=== PATIENT | male | born 1940 | race Caucasian/White ===

== ENCOUNTER 2017-11-14 20:36 | Inpatient (IN) | payer MEDICARE, BC ==
[~2017-11-14] VITALS: Ht 177.8 cm; Wt 79.5 kg
[2017-11-14 21:31] LABS: HEMATOCRIT 37.8 % (42.0-54.0); HEMOGLOBIN 12.2 g/dL (13.5-17.5); MCH 28.5 pg (26.0-34.0); MCHC 32.3 g/dL (31.0-37.0); MCV 88.3 fL (80.0-100.0); PLATELET COUNT 121 10x3/uL (130-400); RBC 4.28 10x6/uL (4.20-6.10); WBC 2.2 10x3/uL (4.8-10.8)
[2017-11-14 21:42] LABS: APPEARANCE CLEAR (CLEAR); BILIRUBIN NEGATIVE (NEGATIVE); COLOR YELLOW (YELLOW); GLUCOSE NEGATIVE (NEGATIVE); KETONE NEGATIVE (NEGATIVE); NITRITE NEGATIVE (NEGATIVE); PROTEIN NEGATIVE (NEGATIVE); SPECIFIC GRAVITY 1.015 (1.005-1.020); UROBILINOGEN NORMAL (NORMAL)
[2017-11-14 22:01] LABS: ALBUMIN 3.3 g/dL (3.4-5.0); ALKALINE PHOSPHATASE 96 U/L (46-116); ALT (SGPT) 26 U/L (10-68); BILIRUBIN - TOTAL 0.33 mg/dL (0.2-1.3); CALC OSMOLALITY 284 mosm/kg (275-300); CALCIUM 8.2 mg/dL (8.5-10.1); CARBON DIOXIDE 27.5 mmol/L (21.0-32.0); CHLORIDE - SERUM 105 mmol/L (98-107); CREATININE - SERUM 1.3 mg/dL (0.6-1.3); GLUCOSE 112 mg/dL (74-106); POTASSIUM - SERUM 4.1 mmol/L (3.5-5.1); PROTEIN - SERUM 6.8 g/dL (6.4-8.2); SODIUM 140 mmol/L (136-145); UREA NITROGEN 26 mg/dL (7-18); eGFR NON AFRICAN AMERICAN 57 mL/min (90-120)
[2017-11-14 22:12] LABS: CHOL - HDL RATIO 3.8 ratio (2.3-4.9); CHOLESTEROL, TOTAL 148 mg/dL (0-200); CKMB 1.3 U/L (0.0-3.6); CREATINE KINASE 79 UL (21-232); HDL CHOLESTEROL 39 mg/dL (32-96); LDL CHOLESTEROL 82 mg/dL (0-100); LDL-HDL RATIO 2.1 ratio (1.5-3.5); TRIGLYCERIDE 139 mg/dL (30-200); TROPONIN-I < 0.017 ng/mL (0.000-0.060)
[2017-11-14 22:14] LABS: LYMPHOCYTES 36 % (15-50); MONOCYTES 1 % (2-11); NEUTROPHILS 63 % (40-80); PLATELET ESTIMATE NORMAL
[2017-11-15 04:47] VITALS: BP 128/62
[2017-11-15 05:40] LABS: HEMATOCRIT 37.3 % (42.0-54.0); HEMOGLOBIN 12.2 g/dL (13.5-17.5); MCH 28.8 pg (26.0-34.0); MCHC 32.7 g/dL (31.0-37.0); MCV 88.2 fL (80.0-100.0); MEAN PLATELET VOLUME 9.4 fL (7.4-10.4); PLATELET COUNT 113 10x3/uL (130-400); RBC 4.23 10x6/uL (4.20-6.10)
[2017-11-15 05:41] LABS: WBC 1.6 10x3/uL (4.8-10.8)
[2017-11-15 07:29] VITALS: BP 128/62; BMI 25.1
[2017-11-15 07:47] LABS: ANISOCYTOSIS OCC; LYMPHOCYTES 36 % (15-50); MONOCYTES 4 % (2-11); NEUTROPHILS 60 % (40-80); PLATELET ESTIMATE DECREASED
[2017-11-15 07:48] LABS: ROULEAUX OCC
[2017-11-15 08:03] VITALS: BP 159/90
[2017-11-15 11:39] VITALS: Ht 177.8 cm; Wt 79.5 kg
[2017-11-15 12:35] VITALS: BP 125/74
[2017-11-15 14:16] LABS: INR 1.03 (0.85-1.17); PROTIME 13.1 SECONDS (11.6-15.0)
[2017-11-15 15:56] VITALS: BP 121/77
[2017-11-15 21:41] VITALS: BP 161/91
[2017-11-16 02:35] VITALS: BP 138/84
[2017-11-16 06:20] VITALS: BP 100/70
[2017-11-16 09:07] VITALS: BP 134/78
[2017-11-16 13:13] VITALS: BP 124/70
[2017-11-16 16:23] VITALS: BP 117/69
[2017-11-16 22:16] VITALS: BP 132/80
[2017-11-17 05:26] VITALS: BP 139/82
[2017-11-17 05:35] LABS: BASOPHILS 0.8 % (0-2); EOSINOPHILS 0 % (0-7); HEMATOCRIT 35.3 % (42.0-54.0); HEMOGLOBIN 11.6 g/dL (13.5-17.5); LYMPHOCYTES 23.1 % (15-50); MCH 28.5 pg (26.0-34.0); MCHC 32.9 g/dL (31.0-37.0); MCV 86.7 fL (80.0-100.0); MEAN PLATELET VOLUME 9.6 fL (7.4-10.4); MONOCYTES 12.4 % (2-11); NEUTROPHILS 63.7 % (40-80); RBC 4.07 10x6/uL (4.20-6.10); RDW 13.8 % (11.5-14.5)
[2017-11-17 05:38] LABS: PLATELET COUNT 71 10x3/uL (130-400); WBC 1.2 10x3/uL (4.8-10.8)
[2017-11-17 05:54] LABS: ALBUMIN 2.8 g/dL (3.4-5.0); BILIRUBIN - TOTAL 0.3 mg/dL (0.2-1.3); CALCIUM 7.7 mg/dL (8.5-10.1); CREATININE - SERUM 1.2 mg/dL (0.6-1.3); PROTEIN - SERUM 5.9 g/dL (6.4-8.2)
[2017-11-17 08:03] VITALS: BP 138/81
[2017-11-17 12:58] VITALS: BP 142/80
[2017-11-17 14:24] LABS: MONO NEGATIVE (NEGATIVE)
[2017-11-17 16:14] LABS: EHRLICHIA CHAFF IGG Negative (Neg:<1:64); EHRLICHIA CHAFF IGM Negative (Neg:<1:20); HGE IGG TITER Negative (Neg:<1:64); HGE IGM TITER Negative (Neg:<1:20)
[2017-11-17 16:52] VITALS: BP 123/66
[2017-11-17 21:32] VITALS: BP 131/78
[2017-11-18 04:56] VITALS: BP 125/75
[2017-11-18 06:00] LABS: BASOPHILS 0.7 % (0-2); EOSINOPHILS 0.7 % (0-7); HEMATOCRIT 35.5 % (42.0-54.0); HEMOGLOBIN 11.7 g/dL (13.5-17.5); LYMPHOCYTES 29.3 % (15-50); MCH 28.4 pg (26.0-34.0); MCV 86.2 fL (80.0-100.0); MONOCYTES 17.1 % (2-11); NEUTROPHILS 52.2 % (40-80); PLATELET COUNT 73 10x3/uL (130-400); RBC 4.12 10x6/uL (4.20-6.10)
[2017-11-18 06:21] LABS: WBC 1.4 10x3/uL (4.8-10.8)
[2017-11-18 06:34] LABS: ALBUMIN 2.7 g/dL (3.4-5.0); BILIRUBIN - TOTAL 0.29 mg/dL (0.2-1.3); CALCIUM 7.9 mg/dL (8.5-10.1); CARBON DIOXIDE 26.9 mmol/L (21.0-32.0); CREATININE - SERUM 1.1 mg/dL (0.6-1.3); POTASSIUM - SERUM 3.9 mmol/L (3.5-5.1); PROTEIN - SERUM 5.5 g/dL (6.4-8.2)
[2017-11-18 08:59] VITALS: BP 135/73
[2017-11-18 10:12] LABS: EBV - EARLY ANTIGEN AB IGG 79.9 U/mL (0.0-8.9); EBV - NUCLEAR ANTIGEN AB IGG >600.0 U/mL (0.0-17.9); EBV VIRAL CAPSID AB IGG >600.0 U/mL (0.0-17.9); EBV VIRAL CAPSID AB IGM <36.0 U/mL (0.0-35.9)
[2017-11-18 13:09] VITALS: BP 136/75
[2017-11-18 16:14] VITALS: BP 141/80
[2017-11-18 22:35] VITALS: BP 153/83
[2017-11-19 06:40] LABS: BASOPHILS 0.6 % (0-2); EOSINOPHILS 2.5 % (0-7); HEMATOCRIT 35.8 % (42.0-54.0); HEMOGLOBIN 11.7 g/dL (13.5-17.5); LYMPHOCYTES 27.6 % (15-50); MCH 28.2 pg (26.0-34.0); MCHC 32.7 g/dL (31.0-37.0); MCV 86.3 fL (80.0-100.0); MEAN PLATELET VOLUME 9.5 fL (7.4-10.4); MONOCYTES 14.7 % (2-11); NEUTROPHILS 54.6 % (40-80); PLATELET COUNT 62 10x3/uL (130-400); RBC 4.15 10x6/uL (4.20-6.10); RDW 13.8 % (11.5-14.5)
[2017-11-19 06:42] LABS: WBC 1.6 10x3/uL (4.8-10.8)
[2017-11-19 07:12] LABS: ALBUMIN 2.8 g/dL (3.4-5.0); ANION GAP 12.4 mmol/L (8-16); BILIRUBIN - TOTAL 0.3 mg/dL (0.2-1.3); CALCIUM 7.8 mg/dL (8.5-10.1); CARBON DIOXIDE 26.3 mmol/L (21.0-32.0); CREATININE - SERUM 1.1 mg/dL (0.6-1.3); POTASSIUM - SERUM 3.7 mmol/L (3.5-5.1); PROTEIN - SERUM 5.4 g/dL (6.4-8.2)
[2017-11-19 08:28] VITALS: BP 135/72
[2017-11-19] MEDS ORDERED: DOXYCYCLINE HY100 M2 PO (09:26)
[2017-11-19] MEDS ORDERED: PROTONIX40 MG PO (09:26)
[2017-11-19 13:25] VITALS: BP 137/74
[2017-11-20 16:12] LABS: LYME WB - IGG P18 AB Absent (()); LYME WB - IGG P23 AB Absent (()); LYME WB - IGG P28 AB Absent (()); LYME WB - IGG P30 AB Absent (()); LYME WB - IGG P39 AB Absent (()); LYME WB - IGG P41 AB Absent (()); LYME WB - IGG P45 AB Absent (()); LYME WB - IGG P58 AB Absent (()); LYME WB - IGG P66 AB Absent (()); LYME WB - IGG P93 AB Absent (()); LYME WB - IGG WB INTERP Negative (()); LYME WB - IGM P23 AB Absent (()); LYME WB - IGM P39 AB Absent (()); LYME WB - IGM P41 AB Absent (()); LYME WB - IGM WB INTERP Negative (())
== END 2017-11-19 14:00 | disposition home or self-care (01) | DRG 866 ==
LOC: D.ER 20:36 → D.MS 22:50 → D.EDHOLD 22:50 → D.MS 23:45
PROVIDERS: Emergency Medicine; Internal Medicine Nephrology
DX: A93.8 Other specified arthropod-borne viral fevers (principal); N17.9 Acute kidney failure, unspecified; R07.89 Other chest pain; W57.XXXA Bitten or stung by nonvenomous insect and other nonvenomous arthropods, initial encounter; I10 Essential (primary) hypertension; D70.9 Neutropenia, unspecified; D69.6 Thrombocytopenia, unspecified

== ENCOUNTER 2017-12-27 10:42 | Emergency (ER) | payer MEDICARE, BC ==
[~2017-12-27] VITALS: Ht 177.8 cm; Wt 79.5 kg
[~2017-12-27 10:42] MED LIST: DOXYCYCLINE HY100 M2 PO; PROTONIX40 MG PO
[2017-12-27 10:49] VITALS: Ht 177.8 cm; Wt 79.5 kg
[2017-12-27] MEDS ORDERED: CYCLOBENZAPRINE10 MG PO (10:51)
[2017-12-27] MEDS ORDERED: GABAPENTIN100 MG PO (10:51)
[2017-12-27] MEDS ORDERED: MOBIC7.5 MG PO (10:51)
[2017-12-27 15:10] VITALS: BP 192/90
== END 2017-12-27 15:10 | disposition home or self-care (01) ==
LOC: D.ER 10:42
DX: M54.5 Low back pain (principal); M54.16 Radiculopathy, lumbar region